=== PATIENT | male | born 1970 | race Caucasian/White ===

== ENCOUNTER 2022-10-25 06:36 | Day surgery (SDC) | payer BC ==
[~2022-10-25 06:36] MED LIST: Lactated Ringers 1,000 ML IV SCH
[2022-10-25] MEDS ORDERED: fentaNYL 100 MCG/2 ML SDV ONE (07:25)
[2022-10-25] MEDS ORDERED: Propofol 200 MG/20 ML SDV ONE (07:25)
[2022-10-25 09:00] VITALS: BP 112/60; PULSE 96
== END 2022-10-25 08:50 | disposition home or self-care (01) ==
LOC: MW.SDS 06:36
PROVIDERS: ATTEND Surgery
DX: Z12.11 Encounter for screening for malignant neoplasm of colon (principal); K63.5 Polyp of colon; K64.8 Other hemorrhoids; J30.9 Allergic rhinitis, unspecified; Z79.899 Other long term (current) drug therapy; Z98.890 Other specified postprocedural states
CPT/HCPCS: 45380; J2704; J3010; J7120; 00812

== ENCOUNTER 2023-10-30 20:31 | Emergency (ER) | payer BC ==
[2023-10-30 21:25] VITALS: PULSE 65
[2023-10-30] MEDS: Octyl 2-Cyanoacrylate 1 g/1 mL 1 APPLIC PEN TOP ONE (21:34)
[2023-10-30 21:57] VITALS: BP 131/85
== END 2023-10-30 21:57 | disposition home or self-care (01) ==
LOC: MW.ED 20:31
DX: S61.011A Laceration without foreign body of right thumb without damage to nail, initial encounter (principal); Z75.8 Other problems related to medical facilities and other health care; W26.0XXA Contact with knife, initial encounter; Y93.G1 Activity, food preparation and clean up
CPT/HCPCS: 12001; 99282; A9270